=== PATIENT | male | born 1950 | race Native Hawaiian/Other Pacific Islander ===

== ENCOUNTER → 2020-09-06 | Outpatient (CLI) | payer MEDICARE, BC ==
--- NOTE | 2020-09-06 16:14 | MR ---
EXAMINATION TYPE: MR knee LT wo con DATE OF EXAM: 09/06/2020 COMPARISON: HISTORY: Pain in left knee TECHNIQUE: Multiplanar, multisequence imaging of the left knee is performed without IV contrast. FINDINGS: MEDIAL MENISCUS: Posterior horn the medial meniscus shows an attenuated appearance, linear abnormal s ignal extending to the articular surface with extension into the body LATERAL MENISCUS: Anterior and posterior horns are intact without tear. CRUCIATE LIGAMENTS: Proximal aspect of the anterior cruciate ligament shows T2 bright signal and a sp lit appearance consistent with possible partial tear COLLATERAL LIGAMENTS: Increased signal within the popliteus tendon proximally could be due to tendino sis EXTENSOR MECHANISM: Visualized quadriceps and patellar tendons are intact. EFFUSION: Small joint effusion present POPLITEAL CYST: Small Booth's cyst present, TRICOMPARTMENT SPACES: There is joint space loss in the medial compartment CARTILAGE: There is some questionable grade 2 to grade III chondromalacia posterior patella on axial image 20, grade 2 to grade III chondromalacia in the medial compartment BONE MARROW SIGNAL: No focal abnormal marrow signal is appreciated. OTHER: Mild marginal spurring present in the medial lateral compartments, patellofemoral joint IMPRESSION: Tear of the posterior horn the medial meniscus. Osteoarthritis. Small joint effusion. 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
== END | disposition home or self-care (01) ==
LOC: RADMRIMAIN 08:57
PROVIDERS: ATTEND Orthopaedic Surgery
DX: S83.242A Other tear of medial meniscus, current injury, left knee, initial encounter (principal); M17.12 Unilateral primary osteoarthritis, left knee; M71.22 Synovial cyst of popliteal space [Baker], left knee; M22.42 Chondromalacia patellae, left knee; M25.762 Osteophyte, left knee; R93.7 Abnormal findings on diagnostic imaging of other parts of musculoskeletal system; M25.862 Other specified joint disorders, left knee

== ENCOUNTER → 2020-10-05 | Outpatient (CLI) | payer MEDICARE, BC ==
[2020-10-05 08:39] LABS: Basophils % (A) 1 %; Eosinophils # (A) 0.1 k/uL (0-0.7); Eosinophils % (A) 3 %; HCT 44.4 % (39.0-53.0); HGB 14.7 gm/dL (13.0-17.5); Lymphocytes # (A) 1.2 k/uL (1.0-4.8); Lymphocytes % (A) 31 %; MCHC 33.1 g/dL (31.0-37.0); MCV 99.6 fL (80.0-100.0); Mean Platelet Volume 7.3; Monocytes # (A) 0.2 k/uL (0-1.0); Monocytes % (A) 5 %; Neutrophils # (A) 2.2 k/uL (1.3-7.7); Neutrophils % (A) 58 %; Platelet Count 220 k/uL (150-450); RBC 4.46 m/uL (4.30-5.90); RDW 12.6 % (11.5-15.5); WBC 3.8 k/uL (3.8-10.6)
[2020-10-05 08:48] LABS: Potassium 4.3 mmol/L (3.5-5.1)
== END | disposition home or self-care (01) ==
LOC: LABPAT 07:58
PROVIDERS: ATTEND Orthopaedic Surgery
DX: M23.92 Unspecified internal derangement of left knee (principal)
CPT/HCPCS: 36415; 80051; 85025; 93005

== ENCOUNTER 2020-10-19 12:02 | Day surgery (SDC) | payer MEDICARE, BC ==
[2020-10-16 15:30] VITALS: BMI 22.7
--- NOTE | 2020-10-18 18:49 | HP ---
HISTORY AND PHYSICAL REASON FOR ADMISSION: Surgery scheduled for 10/19/2020 HISTORY OF PRESENT ILLNESS: Aftab Tafoya is a 70-year-old patient seen with progressive left knee pain. We discussed options. The patient elected to proceed with arthroscopy. Consent was obtained. PAST MEDICAL HISTORY: Noncontributory. PAST SURGICAL HISTORY: Knee arthroscopy. DAILY MEDICATIONS: None. ALLERGIES: IODINE. SOCIAL HISTORY: The patient denies tobacco use. PHYSICAL EXAMINATION: Evaluation of the left knee: Range of motion 0-120. Mild effusion. Tenderness medial joint line. Positive medial Kenan's. Ligaments stable. Hip rotation without pain. Distal neurovascular exam is intact. RADIOGRAPHS: Radiographs of the left knee revealed mild osteoarthritis. MRI left knee revealed medial meniscal tear. IMPRESSION: Internal derangement, left knee with medial meniscal tear. PLAN: Left knee arthroscopy with partial meniscectomy, partial synovectomy and debridement. and surgery scheduled for 10/19/2020. MMODL / IJN: [id number] /
[~2020-10-19 12:02] MED LIST: DEXAMETHASONE SOD PHOSPHATE 4 MG/ML 1 ML VIAL IV ONE; LACTATED RINGERS 1,000 ML IV SCH; MIDAZOLAM 2 MG/2 ML VIAL IV PRN
[2020-10-19] MEDS ORDERED: LIDOCAINE 1% (10MG/ML) FOR IV START INTRADERMA ONE (13:20)
[2020-10-19] MEDS: ONDANSETRON 4 MG/2 ML VIAL IVP ONE ×2 (13:26→15:48)
[2020-10-19] MEDS ORDERED: PROPOFOL 10 MG/ML 20 ML VIAL IV ONE (14:40)
[2020-10-19] MEDS ORDERED: LIDOCAINE 1% INJ 10MG/ML (20 ML MDV) ONE (14:40)
[2020-10-19] MEDS ORDERED: fentaNYL (PF) 50 MCG/ML 2 ML AMP ONE (14:40)
[2020-10-19] MEDS ORDERED: BUPIVACAINE (PF) 0.25% 30 ML VIAL INTRAARTIC ONE (14:45)
[2020-10-19 15:34] VITALS: TEMP 96.8
--- NOTE | 2020-10-19 15:42 | P.OP ---
Date of Procedure: 10/19/20 Preoperative Diagnosis: Internal derangement left knee Postoperative Diagnosis: 1. Tear medial meniscus left knee 2. Grade 2/3 chondromalacia medial femoral condyle left knee 3. Reactive synovitis medial, lateral and suprapatellar compartments left knee Procedure(s) Performed: 1. Arthroscopic partial medial meniscectomy left knee 2. Arthroscopic chondroplasty medial femoral condyle left knee 3. Arthroscopic partial synovectomy medial, lateral and suprapatellar compartments left knee Anesthesia: GETA, local Surgeon: Iron Baptiste Estimated Blood Loss (ml): 6 Pathology: none sent Condition: stable Disposition: PACU Indications for Procedure: 70-year-old patient seen with progressive left knee pain. After treatment options were discussed, he elected to proceed with arthroscopy. Operative Findings: See description of procedure Description of Procedure: Patient was taken to the operative suite. Patient underwent a general anesthetic by the department of anesthesia. Patient was given preoperative antibiotics. The left lower extremity was placed in a well-padded arthroscopic leg quigley. The left leg was prepped and draped in the normal sterile orthopedic fashion. A lateral parapatellar and suprapatellar incision was made. Trochars were inserted. Arthroscopy was initiated. Suprapatellar pouch revealed diffuse thick reactive synovitis. The patellofemoral joint appeared to articulate congruently. There was grade 2 chondromalacia patella with no osteochondral tears present. The scope was guided into the medial gutter. Loose bodies or plica were identified. The scope was then guided into the medial compartment. A medial parapatellar incision was made. Trocar inserted followed by probe. There was a complex tear involving the medial meniscus. There were grade 2/3 chondromalacia changes the medial femoral condyle with some osteochondral tears present. There was thick reactive synovitis anteriorly. I performed a partial medial meniscectomy getting down to stable meniscal tissue. I performed a chondroplasty of the medial femoral condyle getting down to stable meniscal tissue. I performed a partial synovectomy decompressing the reactive synovitis. The residual meniscus was stable. The residual osteochondral surface of the medial femoral condyle appeared stable. There was good decompression of the synovitis. Scope and probe were then guided into the intercondylar notch. Cruciates were identified, probed and found to be stable. The scope and probe were then guided into lateral compartment. Lateral meniscus was found to be stable. There was no significant chondromalacia. There was thick reactive synovitis anteriorly. A motorize shaver was introduced and partial synovectomy was performed. The shaver was removed. There was good decompression of the synovitis. The scope was in guided back into the suprapatellar compartment. I introduced a motorized shaver into the suprapatellar compartment. I debrided some piecemeal fragments of meniscus I encountered. I performed a partial synovectomy decompressing the reactive synovitis. The shaver was removed. I took one more look around the entire knee, no residual debris. Instruments were now removed from the joint. The joint was infiltrated with .25% Marcaine. Steri-Strips were applied to the portal sites. Sterile dressings were applied. The patient was placed into a KAYODE hose. No tourniquet was utilized. The patient was awakened, transferred to a bed and taken to recovery stable satisfactory condition.
[2020-10-19] MEDS: HYDROmorphone 0.5 MG/0.5 ML SYRINGE IVP PRN ×2 (15:48→15:58)
[2020-10-19 15:50] VITALS: RESP 16
[2020-10-19 17:32] VITALS: BP 162/76; PULSE 68
== END 2020-10-19 17:38 | disposition home or self-care (01) ==
LOC: OR 12:02
PROVIDERS: ATTEND Orthopaedic Surgery
DX: M23.204 Derangement of unspecified medial meniscus due to old tear or injury, left knee (principal); M65.862 Other synovitis and tenosynovitis, left lower leg; M94.262 Chondromalacia, left knee; Z91.048 Other nonmedicinal substance allergy status
CPT/HCPCS: 29881; J1100; J2405; J0690; J2001; J3010; J2704; J1170

== ENCOUNTER → 2020-11-06 | Outpatient (CLI) | payer MEDICARE, BC ==
--- NOTE | 2020-11-07 03:25 | MR ---
EXAMINATION TYPE: MR knee RT wo con DATE OF EXAM: 11/06/2020 COMPARISON: None HISTORY: Right knee pain Multiplanar multiecho imaging of the right knee was performed without contrast. Anterior and posterior cruciate ligaments are intact. There is mild knee joint effusion. The collater al ligaments are intact. The lateral meniscus is intact. There is horizontal tear through the posterior horn of the medial men iscus extending to the inferior surface. There is some deformity of the medial meniscus. There is mil d thinning of the anterior horn medial meniscus. I see no bony destructive process. There is no evidence of a fracture. Patella is intact. IMPRESSION: Osteoarthritic changes in the medial joint space with large horizontal tear posterior horn medial men iscus. No evidence of ligamentous tear. Knee joint effusion.
== END | disposition home or self-care (01) ==
LOC: RADMRIMAIN 05:59
PROVIDERS: ATTEND Orthopaedic Surgery
DX: S83.241A Other tear of medial meniscus, current injury, right knee, initial encounter (principal); M17.11 Unilateral primary osteoarthritis, right knee

== ENCOUNTER 2020-12-20 09:03 | Day surgery (SDC) | payer MEDICARE, BC ==
[2020-12-19 13:36] VITALS: BMI 25.4
--- NOTE | 2020-12-19 20:58 | HP ---
HISTORY AND PHYSICAL DATE OF SURGERY: 12/20/2020 Aftab Tafoya is a 70-year-old gentleman seen with progressive right knee pain. We discussed options for treatment. He elected to proceed with arthroscopy. Consent was obtained. PAST MEDICAL HISTORY: Noncontributory. PAST SURGICAL HISTORY: Knee arthroscopy. DAILY MEDICATIONS: None. ALLERGIES: IODINE. SOCIAL HISTORY: He denies tobacco use. PHYSICAL EVALUATION OF THE RIGHT KNEE: Range of motion is zero to 130. Mild effusion. Tenderness, medial joint line. Positive medial Kenan's. Ligaments are stable. Hip rotation is without pain. Distal neurovascular exam is intact. RADIOGRAPHS: Right knee radiographs revealed mild osteoarthritis. Right knee MRI revealed medial meniscal tear. IMPRESSION: Internal derangement of right knee with medial meniscal tear. PLAN: Right knee arthroscopy with partial meniscectomy and debridement. MMODL / IJN: [id number] /
[~2020-12-20 09:03] MED LIST changes: +LIDOCAINE 1% (10MG/ML) FOR IV START INTRADERMA PRN; -MIDAZOLAM 2 MG/2 ML VIAL IV PRN; +ONDANSETRON 4 MG/2 ML VIAL IVP ONE
[2020-12-20] MEDS ORDERED: PROPOFOL 10 MG/ML 20 ML VIAL IV ONE (11:04)
[2020-12-20] MEDS ORDERED: LIDOCAINE 1% INJ 10MG/ML (20 ML MDV) ONE (11:04)
[2020-12-20] MEDS ORDERED: MIDAZOLAM 2 MG/2 ML VIAL ONE (11:04)
[2020-12-20] MEDS ORDERED: fentaNYL (PF) 50 MCG/ML 2 ML AMP ONE (11:04)
[2020-12-20] MEDS ORDERED: BUPIVACAINE (PF) 0.25% 30 ML VIAL SQ ONE ×2 (11:33→11:43)
--- NOTE | 2020-12-20 11:59 | P.OP ---
Date of Procedure: 12/20/20 Preoperative Diagnosis: Internal derangement right knee Postoperative Diagnosis: 1. Tear medial meniscus right knee 2. Reactive synovitis medial, lateral and suprapatellar compartments right knee Procedure(s) Performed: 1. Arthroscopic partial medial meniscectomy right knee 2. Arthroscopic partial synovectomy medial, lateral and suprapatellar compartments right knee Anesthesia: JOVITAA, local Surgeon: Iron Baptiste Estimated Blood Loss (ml): 6 Pathology: none sent Condition: stable Disposition: PACU Indications for Procedure: 70-year-old patient seen with progressive right knee pain. After treatment options were discussed, he elected to proceed with arthroscopy. Operative Findings: See description of procedure Description of Procedure: Patient was taken to the operative suite. Patient underwent a general ane sthetic by the department of anesthesia. Patient was given preoperative antibiotics. The right lower extremity was placed in a well-padded arthroscopic leg quigley. The right leg was prepped and draped in the normal sterile orthopedic fashion. A lateral parapatellar and suprapatellar incision was made. Trochars were inserted. Arthroscopy was initiated. Suprapatellar pouch revealed diffuse thick reactive synovitis. The patellofemoral joint appeared to articulate congruently. There was grade 1 chondromalacia of the patella with no osteochondral tears present. The scope was guided into the medial gutter. No loose bodies or plica were identified. The scope was then guided into the medial compartment. A medial parapatellar incision was made. Trocar inserted followed by probe. Complex tear involving the posterior horn of the medial meniscus. There was thick reactive synovitis anteriorly. There were grade 1 chondromalacia changes of medial compartment. I performed a partial medial meniscectomy getting down to stable meniscal tissue. I performed a partial synovectomy decompressing the reactive synovitis. The shaver was removed. The residual meniscus was found to be stable. There was good decompression of the synovitis. Scope and probe were then guided into the intercondylar notch. Cruciates were identified, probed and found to be stable. The scope and probe were then guided into lateral compartment. Lateral meniscus was probed and found to be stable. There was no synovitis chondromalacia. There was thick reactive synovitis anteriorly. I introduced a motorized shaver and performed a partial synovectomy decompressing the thick reactive synovitis. The shaver was removed. There was good decompression of the synovitis. The scope was in guided back into the suprapatellar compartment. I introduced a motorized shaver into the suprapatellar compartment. I debrided some piecemeal fragments of meniscus I encountered. I performed a partial synovectomy decompressing the thick reactive synovitis. The shaver was removed. There was good decompression of the synovitis. I now took one more look on the entire knee, no residual debris. Instruments were now removed from the joint. The joint was infiltrated with .25% Marcaine. Steri-Strips were applied to the portal sites. Sterile dressings were applied. The patient was placed into a KAYODE hose. No tourniquet was utilized. The patient was awakened, transferred to a bed and taken to recovery stable satisfactory condition.
[2020-12-20 12:03] VITALS: TEMP 96.8
[2020-12-20 12:04] VITALS: RESP 16
[2020-12-20] MEDS ORDERED: HYDROmorphone 0.5 MG/0.5 ML SYRINGE IVP ONE (12:42)
[2020-12-20] MEDS ORDERED: HYDROcodone/APAP 5-325MG 1 EACH TAB ONE (13:31)
[2020-12-20] MEDS ORDERED: HYDROcodone/APAP 5-325MG 1 EACH TAB PO ONE (13:33)
[2020-12-20 14:14] VITALS: BP 156/75; PULSE 55
== END 2020-12-20 14:30 | disposition home or self-care (01) ==
LOC: OR 09:03
PROVIDERS: ATTEND Orthopaedic Surgery
DX: S83.231A Complex tear of medial meniscus, current injury, right knee, initial encounter (principal); X58.XXXA Exposure to other specified factors, initial encounter; M65.861 Other synovitis and tenosynovitis, right lower leg; M17.11 Unilateral primary osteoarthritis, right knee; M22.41 Chondromalacia patellae, right knee; Z91.09 Other allergy status, other than to drugs and biological substances; Z98.890 Other specified postprocedural states
CPT/HCPCS: 29881; 29876; J2250; J1100; J2405; J0690; J2001; J3010; J2704; J1170

== ENCOUNTER 2025-03-02 08:02 | Day surgery (SDC) | payer MEDICARE, BC ==
[2025-02-25 16:23] VITALS: BMI 25.7
[~2025-03-02 08:02] MED LIST changes: -DEXAMETHASONE SOD PHOSPHATE 4 MG/ML 1 ML VIAL IV ONE; -LIDOCAINE 1% (10MG/ML) FOR IV START INTRADERMA PRN; -ONDANSETRON 4 MG/2 ML VIAL IVP ONE
[2025-03-02 08:41] VITALS: TEMP 97.7
[2025-03-02] MEDS: IV FLUID CONTINUATION 1,000 ML IV ONE (08:43)
[2025-03-02] MEDS ORDERED: LIDOCAINE 1% INJ 10MG/ML (20 ML MDV) ONE (09:42)
[2025-03-02] MEDS ORDERED: PROPOFOL 10 MG/ML 20 ML VIAL IV ONE (09:42)
--- NOTE | 2025-03-02 09:57 | P.GSHP ---
History of Present Illness H&P Date: 03/02/25 CHIEF COMPLAINT: GERD HISTORY OF PRESENT ILLNESS: The patient is a 74-year-old male who presents reports gastroesophageal reflux disease including symptomatic H. pylori gastritis. Upper endoscopy was offered for further evaluation and management. PAST MEDICAL HISTORY: Please see list. PAST SURGICAL HISTORY: Please see list. MEDICATIONS: Please see list. ALLERGIES: Please see list. SOCIAL HISTORY: No illicit drug use FAMILY HISTORY: No reports of Crohn disease or ulcerative colitis. REVIEW OF ORGAN SYSTEMS: CONSTITUTIONAL: No reports of fevers or chills. GI: Denies any blood in stools or constipation. PHYSICAL EXAM: VITAL SIGNS: Stable GENERAL: Well-developed and pleasant in no acute distress. HEENT: No scleral icterus. Extraocular movements grossly intact. Moist buccal mucosa. NECK: Supple without lymphadenopathy. CHEST: Unlabored respirations. Equal bilateral excursions. CARDIOVASCULAR: Regular rate and rhythm. Distal 2+ pulses. ABDOMEN: Soft, nondistended. MUSCULOSKELETAL: No clubbing, cyanosis, or edema. ASSESSMENT: 1. Gastroesophageal reflux disease 2. H. pylori gastritis PLAN: 1. Recommend proceeding with an upper endoscopy Past Medical History Past Medical History: No Reported History Additional Past Medical History / Comment(s): Recent chest irritation and increased phlegm production. Hip pain History of Any Multi-Drug Resistant Organisms: None Reported Past Surgical History: Orthopedic Surgery Additional Past Surgical History / Comment(s): knee bilateral arthroscopic Past Anesthesia/Blood Transfusion Reactions: No Reported Reaction Additional Past Anesthesia/Blood Transfusion Reaction / Comment(s): no hx of blood transfusion Smoking Status: Never smoker - Past Family History Sister(s) Family Medical History: Cancer Additional Family Medical History / Comment(s): passed from stomach CA Medications and Allergies Home Medications Medication Instructions Recorded Confirmed Type Biotin [Biotin Disolve] 5,000 mcg PO DAILY 12/19/20 03/02/25 History Multivitamins, Thera [Multivitamin 1 tab PO DAILY 12/19/20 03/02/25 History (formulary)] Omeprazole [PriLOSEC] 40 mg PO DAILY #90 cap 12/28/24 03/02/25 Rx Cognium Memory Support 1 dose PO DAILY 02/25/25 03/02/25 History Glucosam/Dominic-Msm1/C/Andrzej/Bosw 1 each PO DAILY 02/25/25 03/02/25 History [Glucosamine-Chondroitin Tablet] Zinc Gluconate [Zinc] 1 dose PO DAILY 02/25/25 03/02/25 History Allergies Allergy/AdvReac Type Severity Reaction Status Date / Time etodolac Allergy Unknown Verified 03/02/25 08:31 latex Allergy skin Verified 03/02/25 08:31 redness/itching bandaid adhesive Allergy skin Uncoded 03/02/25 08:31 redness/itching Surgical - Exam Vital Signs Temp Pulse Resp BP Pulse Ox 97.7 F 68 16 195/93 98 03/02/25 08:38 03/02/25 08:38 03/02/25 08:38 03/02/25 08:38 03/02/25 08:38
[2025-03-02 10:32] VITALS: BP 148/81; PULSE 63; RESP 16
--- NOTE | 2025-03-02 10:39 | P.PCN ---
Date of Procedure: 03/02/25 Description of Procedure: PREOPERATIVE DIAGNOSIS: H. pylori gastritis POSTOPERATIVE DIAGNOSIS: Gastroesophageal reflux disease. Gastritis. OPERATION: Esophagogastroduodenoscopy with cold forceps biopsies along antrum and esophagus, duodenum SURGEON: Diana Nguyen MD ANESTHESIA: MAC. INDICATIONS: The patient is a 74-year-old male who presents with H. pylori gastritis and reflux disease. Benefits and risks of the procedure were described. Informed consent was obtained. DESCRIPTION: The patient was brought into the endoscopy suite and laid in the left lateral decubitus position. An Olympus gastroscope was passed along the posterior oropharynx down to the distal esophagus where the squamocolumnar junction was encountered at 38 cm from the incisors. The stomach was entered and no bile reflux was found. Additional findings are listed below. Biopsies with cold forceps were obtained of the antrum. The first through third portion of the duodenum was examined. Retroflexion of the scope confirmed Hill grade 2 lower esophageal valve. The squamocolumnar junction demonstrated LA grade B erosive esophagitis. The stomach was desufflated. The patient tolerated the procedure well. FINDINGS: Squamocolumnar junction 38 cm from the incisors. Diaphragmatic hiatus at 38 cm. Hill grade 2 lower esophageal valve. LA grade B erosive esophagitis. Biopsies obtained of the duodenum. Acute on chronic gastritis involving gastric cardia. With biopsies obtained. RECOMMENDATIONS: Upper endoscopy as needed. Plan - Discharge Summary Discharge Rx Participant: No New Discharge Prescriptions: Continue Multivitamins, Thera [Multivitamin (formulary)] 1 tab PO DAILY Biotin [Biotin Disolve] 5,000 mcg PO DAILY Zinc Gluconate [Zinc] 1 dose PO DAILY Omeprazole [PriLOSEC] 40 mg PO DAILY #90 cap Glucosam/Dominic-Msm1/C/Andrzej/Bosw [Glucosamine-Chondroitin Tablet] 1 each PO DAILY Cognium Memory Support 1 dose PO DAILY Discharge Medication List Biotin [Biotin Disolve] 5,000 mcg PO DAILY 12/19/20 [History] Multivitamins, Thera [Multivitamin (formulary)] 1 tab PO DAILY 12/19/20 [History] Omeprazole [PriLOSEC] 40 mg PO DAILY #90 cap 12/28/24 [Rx] Cognium Memory Support 1 dose PO DAILY 02/25/25 [History] Glucosam/Dominic-Msm1/C/Andrzej/Bosw [Glucosamine-Chondroitin Tablet] 1 each PO DAILY 02/25/25 [History] Zinc Gluconate [Zinc] 1 dose PO DAILY 02/25/25 [History] Follow up Appointment(s)/Referral(s): Diana Nguyen MD [STAFF PHYSICIAN] - 03/22/25 11:30 am Patient Instructions/Handouts: Gastritis (DC) Discharge Disposition: HOME SELF-CARE
== END 2025-03-02 10:51 | disposition home or self-care (01) ==
LOC: ORWHC2ENDO 08:02
PROVIDERS: ATTEND Surgery Plastic and Reconstructive Surgery
DX: K29.00 Acute gastritis without bleeding (principal); K29.50 Unspecified chronic gastritis without bleeding; B96.81 Helicobacter pylori [H. pylori] as the cause of diseases classified elsewhere; K21.00 Gastro-esophageal reflux disease with esophagitis, without bleeding; K22.10 Ulcer of esophagus without bleeding; K44.9 Diaphragmatic hernia without obstruction or gangrene; Z91.040 Latex allergy status; Z79.899 Other long term (current) drug therapy; Z88.6 Allergy status to analgesic agent; Z91.048 Other nonmedicinal substance allergy status
CPT/HCPCS: 43239; 88305; J2003; J2704